=== PATIENT | male | born 1980 | race Caucasian/White ===

== ENCOUNTER 2019-09-16 13:22 | Outpatient (CLI) | payer BC | END 2019-09-16 13:23 | disposition home or self-care (01) | LOC: COV 13:22 | PROVIDERS: ATTEND Family Medicine | DX: R05 Cough (principal); R50.9 Fever, unspecified | CPT/HCPCS: 81599 ==

== ENCOUNTER 2020-09-22 11:49 | Outpatient (CLI) | payer BC ==
--- NOTE | 2020-09-22 15:09 | XRAY Report ---
PROCEDURE: Ankle 3 View LT INDICATIONS: LEFT ANKLE PAIN TECHNIQUE: 4 views of the ankle were acquired. COMPARISON: None. FINDINGS: Bones: There are small age-indeterminate ossific fragments adjacent to the distal margin of the fibu la as well as the medial malleolus. Findings may represent small avulsion fracture fragments involvin g the medial and lateral malleolus given reported history of trauma. Additionally, there is moderate overlying soft tissue edema. Ankle mortise is normally aligned. No suspicious bony lesions. Soft tissues: No tibiotalar joint effusion. Achilles tendon appears normal. IMPRESSION: Small ossific fragments adjacent to the distal medial and lateral malleolus with significant overlyin g soft tissue edema which may represent small avulsion fracture fragments given reported history of t rauma. Reviewed by: Rodrigo Emanuel MD on 09/22/2020 3:08 PM PDT Approved by: Rodrigo Emanuel MD on 09/22/2020 3:08 PM PDT Station ID: [id number]
== END 2020-09-22 23:59 | disposition home or self-care (01) ==
LOC: DI.N 11:49
PROVIDERS: ATTEND Physician Assistant Medical
DX: R93.6 Abnormal findings on diagnostic imaging of limbs (principal); R93.89 Abnormal findings on diagnostic imaging of other specified body structures